=== PATIENT | male | born 1960 | race Caucasian/White ===

== ENCOUNTER → 2020-07-20 | Day surgery (SDC) | payer MEDICARE, OTHER ==
[~2020-07-20] MED LIST: BACLOFEN10 MG PO; CALTRATE 600 +1 EAC1 PO; CENTRUM SILVER1 EAC1 PO; CITALOPRAM HBR40 MG PO; CLARITIN10 MG PO; DOXYCYCLINE HY100 MG PO; METOPROLOL SUCC50 MG PO; MONTELUKAST SOD10 MG PO; NORCO 5-325 TA1 EACH PO; OSTEO BI-FLEX1 EACH PO
[2020-07-20 07:54] LABS: HCT 43.6 % (42.0-52.0); HGB 13.7 g/dl (13.2-18.0); MCH 27.8 pg (25.0-31.0); MCHC 31.4 g/dL (32.0-36.0); MCV 88.4 fL (78.0-100.0); MPV 9.4 fL (6.0-9.5); RBC 4.93 M/uL (4.70-6.00); RDW 13.6 % (11.5-14.0); WBC 10.1 K/uL (4.0-10.5)
[2020-07-20 08:13] LABS: ALBUMIN 3.3 g/dL (3.4-5.0); BILIRUBIN - TOTAL 0.6 mg/dL (0.2-1.0); BUN/CREAT RATIO (CALC) 17.6 RATIO; CREATININE 1.36 mg/dL (0.67-1.17); GLOBULIN (CALCULATION) 4.4 g/dL; POTASSIUM 4.7 mmol/L (3.5-5.1); TOTAL PROTEIN 7.7 g/dL (6.4-8.2)
== END | disposition home or self-care (01) ==
LOC: FAS 07:00
PROVIDERS: Surgery
DX: M79.89 Other specified soft tissue disorders (principal); M75.92 Shoulder lesion, unspecified, left shoulder; G31.84 Mild cognitive impairment of uncertain or unknown etiology; I10 Essential (primary) hypertension; R05 Cough; F41.9 Anxiety disorder, unspecified; Z20.822 Contact with and (suspected) exposure to COVID-19
CPT/HCPCS: 36415; 73130; 80053; 88305; 88341; 88342; 93005; J2250; J2704; J7120